=== PATIENT | female | born 1995 | race Caucasian/White ===

== ENCOUNTER 2021-04-10 11:42 | Emergency (ER) | payer SELFPAY ==
[~2021-04-10] VITALS: Ht 154.9 cm; Wt 117.9 kg
--- NOTE | 2021-04-10 12:02 | NUR ---
Dr Soriano at the bedside for MSE.
[2021-04-10] MEDS ORDERED: LORA-259 PO (12:03)
[2021-04-10] MEDS ORDERED: LORAZEPAM 0.5 MG TABLET PO ONE (12:15)
[2021-04-10] MEDS ORDERED: LORAZEPAM 1 MG TABLET ONE (12:16)
[2021-04-10 12:17] VITALS: BP 122/79
--- NOTE | 2021-04-10 12:17 | NUR ---
Patient discharged to home in stable condition. Written and verbal after care instructions given. Patient verbalizes understanding of instructions. Stressed follow up or return to ER for worsening s/s.
== END 2021-04-10 12:32 | disposition home or self-care (01) ==
LOC: ER 11:42
DX: F41.0 Panic disorder [episodic paroxysmal anxiety] (principal)
CPT/HCPCS: A4663

== ENCOUNTER 2021-04-29 12:33 | Emergency (ER) | payer SELFPAY ==
[~2021-04-29] VITALS: Ht 154.9 cm; Wt 117.9 kg
[~2021-04-29 12:33] MED LIST: LORA-259 PO
--- NOTE | 2021-04-29 12:58 | NUR ---
PT IS IN ROOM #1B. DR PACHECO EVALUTED THE PT.
[2021-04-29] MEDS ORDERED: ALBUTEROL SULFATE 2.5 MG/3 ML NEBU NEB ONE (13:00)
[2021-04-29] MEDS ORDERED: ALBUTEROL SULFATE 2.5 MG/3 ML NEBU ONE (13:34)
[2021-04-29 14:41] LABS: HEMATOCRIT 38.8 % (31.2-41.9); MEAN CORPUSCULAR HEMOGLOBIN 28.6 uug (24.7-32.8); MEAN CORPUSCULAR VOLUME 85.4 fL (75.5-95.3); PLATELET COUNT (AUTO) 435 K/uL (179-408)
[2021-04-29 14:45] LABS: CREATININE 0.6 mg/dL (0.6-1.3); POTASSIUM 3.1 mmol/L (3.5-5.1)
[2021-04-29] MEDS ORDERED: ALBU6.7H9 INH (14:45)
[2021-04-29] MEDS ORDERED: PRED50TA PO (14:45)
[2021-04-29] MEDS ORDERED: predniSONE 50 MG TABLET PO ONE (15:00)
[2021-04-29 15:02] LABS: BILIRUBIN,DIRECT 0.1 mg/dL (0.0-0.2); BILIRUBIN,TOTAL 0.4 mg/dL (0.2-1.0); TOTAL PROTEIN, SERUM 7.6 g/dL (6.4-8.2)
[2021-04-29] MEDS ORDERED: predniSONE 50 MG TABLET ONE (15:11)
--- NOTE | 2021-04-29 15:28 | NUR ---
PT WAS D/C'd TO HOME. D/C INSTRUCTIONS GIVEN TO THE PT BY DR PACHECO.
[2021-04-29 15:29] VITALS: BP 136/71
== END 2021-04-29 15:30 | disposition home or self-care (01) ==
LOC: ER 12:37
DX: J45.909 Unspecified asthma, uncomplicated (principal)
CPT/HCPCS: 36415; 70030-TC; 71045; 85025; A4663; J7512

== ENCOUNTER 2022-06-01 15:03 | Emergency (ER) | payer SELFPAY ==
[~2022-06-01] VITALS: Ht 154.9 cm; Wt 113.4 kg
[~2022-06-01 15:03] MED LIST changes: +ALBU6.7H9 INH; +PRED50TA PO
--- NOTE | 2022-06-01 15:30 | NUR ---
Patient seen by
[2022-06-01] MEDS ORDERED: PENI500T PO (15:36)
[2022-06-01] MEDS ORDERED: CHLO473M7 MM (15:36)
[2022-06-01] MEDS ORDERED: IBUP-1955 PO (15:36)
--- NOTE | 2022-06-01 15:38 | NUR ---
Dcd instructions given to pt. who verbalized understanding. Pt. left room AAOx4. vitals stable.
[2022-06-01] MEDS ORDERED: IBUPROFEN 600 MG TABLET PO ONE (15:45)
[2022-06-01] MEDS ORDERED: IBUPROFEN 600 MG TABLET ONE (15:54)
--- NOTE | 2022-06-01 15:57 | NUR ---
DCD instructions given to pt. she left unit ambulatory medicated as requested with motrin.
== END 2022-06-01 15:58 | disposition home or self-care (01) ==
LOC: ER 15:03
DX: K04.7 Periapical abscess without sinus (principal); S02.5XXA Fracture of tooth (traumatic), initial encounter for closed fracture; X58.XXXA Exposure to other specified factors, initial encounter; Y92.89 Other specified places as the place of occurrence of the external cause; J45.909 Unspecified asthma, uncomplicated; F41.9 Anxiety disorder, unspecified; Z79.899 Other long term (current) drug therapy
CPT/HCPCS: A4663

== ENCOUNTER 2022-06-21 01:28 | Emergency (ER) | payer SELFPAY ==
[~2022-06-21] VITALS: Ht 154.9 cm; Wt 113.4 kg
[~2022-06-21 01:28] MED LIST changes: +CHLO473M7 MM; +IBUP-1955 PO; +PENI500T PO
--- NOTE | 2022-06-21 02:00 | NUR ---
Patient is a/ox4, NAD noted. Patient is able to walk with steady gait
[2022-06-21] MEDS ORDERED: HYDROMORPHONE 1 MG/1 ML DISP.SYRIN ONE ×2 (02:11→02:32)
[2022-06-21] MEDS ORDERED: HYDROMORPHONE 1 MG/1 ML DISP.SYRIN IM ONE ×2 (02:15→02:30)
[2022-06-21] MEDS ORDERED: IBUPROFEN 800 MG TABLET ONE (03:40)
[2022-06-21] MEDS ORDERED: IBUP-1958 PO (03:41)
[2022-06-21] MEDS ORDERED: PENI500T PO (03:41)
[2022-06-21 03:43] LABS: *URINE HCG, QUAL NEGATIVE (NEGATIVE)
[2022-06-21] MEDS ORDERED: IBUPROFEN 800 MG TABLET PO ONE (03:45)
--- NOTE | 2022-06-21 03:55 | NUR ---
Patient discharged to home in stable condition. A/Ox4. NAD noted. Walked with a steady gait. Written and verbal after care instructions given. Patient verbalizes understanding of instructions. Stressed follow up or return to ER for worsening s/s.
[2022-06-21 03:59] VITALS: BP 140/85
== END 2022-06-21 03:55 | disposition home or self-care (01) ==
LOC: ER 01:31
DX: K08.89 Other specified disorders of teeth and supporting structures (principal); R03.0 Elevated blood-pressure reading, without diagnosis of hypertension; F41.9 Anxiety disorder, unspecified; J45.909 Unspecified asthma, uncomplicated
CPT/HCPCS: 99284; 84703; 96372 ×2; J1170 ×2; A4663